=== PATIENT | female | born 1975 | race Caucasian/White ===

== ENCOUNTER 2018-01-14 13:28 | Emergency (ER) | payer MEDICAID ==
[~2018-01-14] VITALS: Ht 177.8 cm; Wt 104.0 kg
[2018-01-14 14:02] VITALS: BP 149/71; PULSE 105; RESP 19; TEMP 98.9
[2018-01-14] MEDS ORDERED: DOXE100C4 PO (15:39)
[2018-01-14] MEDS ORDERED: DIAZ10TA PO (15:39)
[2018-01-14] MEDS ORDERED: AMLO10TA2 PO (15:39)
[2018-01-14] MEDS ORDERED: VIST50CA PO (15:39)
[2018-01-14] MEDS ORDERED: METO25TA3 PO (15:39)
[2018-01-14] MEDS ORDERED: RISP1 PO (15:39)
[2018-01-14] MEDS ORDERED: SODIUM CHLOR 0.9% 1000 ML INJ 1,000 ML IV SCH (15:54)
[2018-01-14 15:59] LABS: BACTERIA, URINE OCC /hpf; BILIRUBIN, URINE NEG (NEG); BLOOD, URINE NEG (NEG); GLUCOSE,URINE NEG (NEG); KETONE, URINE NEG (NEG); MUCUS URINE FEW /lpf (OCC); NITRITE,URINE NEG (NEG); SQUAMOUS EPITHELIAL CELL URINE 9 /hpf (0-5); URINE COLOR YELLOW (YELLW/STRAW); URINE LEUKOCYTE ESTERASE NEG (NEG)
[2018-01-14] MEDS ORDERED: MORPHINE SULFATE 4 MG/ML INJ IV PUSH ONE (16:00)
[2018-01-14] MEDS ORDERED: MORPHINE SULFATE 8 MG/ML INJ IV PUSH ONE (16:00)
[2018-01-14] MEDS ORDERED: METOCLOPRAMIDE HCL 10 MG/2 ML VIAL IV PUSH ONE (16:00)
[2018-01-14 16:16] LABS: AUTOMATED NEUTROPHIL # 5.1 TH/MM3 (1.8-7.7); BASOPHIL # 0.1 TH/MM3 (0-0.2); EOSINOPHIL # 0.2 TH/MM3 (0-0.4); EOSINOPHIL % 2.8 % (0.0-4.0); HEMATOCRIT 36.9 % (35.0-46.0); HEMOGLOBIN 12.7 GM/DL (11.6-15.3); LYMPHOCYTE # 2.3 TH/MM3 (1.0-4.8); MEAN CELL VOLUME 85.5 FL (80.0-100.0); MEAN CORPUSCULAR HEMOGLOBIN 29.4 PG (27.0-34.0); MEAN CORPUSCULAR HGB CONC 34.4 % (32.0-36.0); MEAN PLATELET VOLUME 6.5 FL (7.0-11.0); MONO % 9.8 % (0.0-8.0); MONOCYTE # 0.8 TH/MM3 (0-0.9); NEUT % 59.4 % (16.0-70.0); PLATELET COUNT 309 TH/MM3 (150-450); RED BLOOD COUNT 4.32 MIL/MM3 (4.00-5.30); RED CELL DISTRIBUTION WIDTH 14.4 % (11.6-17.2); WHITE BLOOD COUNT 8.6 TH/MM3 (4.0-11.0)
--- NOTE | 2018-01-14 16:43 | RADRPT ---
EXAM DATE: 01/14/2018 4:14 PM EDT AGE/SEX: 43 years / Female INDICATIONS: Right sided flank pain, vomiting. CLINICAL DATA: This is the patient's initial encounter. Patient reports that signs and symptoms have been present for 1 day and indicates a pain score of 5/10. MEDICAL/SURGICAL HISTORY: Renal calculi. . Partial hysterectomy. RADIATION DOSE: 29.95 CTDI (mGy) COMPARISON: No prior exams available for comparison. TECHNIQUE: Multiple contiguous axial images were obtained through the abdomen. Images were obtained using multiple row detector helical technique. Using dose reduction techniques, radiation dose was ke pt as low as reasonably achievable to obtain optimal diagnostic quality images. FINDINGS: Right kidney/ureter: The right kidney is normal in size. There is a 2 mm nonobstructing stone seen in the collecting system. The ureter is followed throughout its course and is unremarkable in caliber n o stones are seen within the right ureter. Left kidney/ureter: The left kidney is normal in size. There is a 3 mm stone seen within the collecti ng system. There is no hydronephrosis. The left ureter is followed throughout its course and is unrem arkable in appearance. Bladder: No stones are identified within the bladder. CT source data: The limited portion of lung base visualized is clear. The visualized portions of live r and spleen are unremarkable. The pancreas and adrenal glands are intact. The abdominal aorta is nor mal in caliber. There is no retroperitoneal adenopathy. No free air free fluid is seen. The loops of small and large bowel are unremarkable. No iliac or inguinal adenopathy is present. No free fluid is seen within the pelvis. CONCLUSION: 1. No definite findings to indicate renal obstruction are identified. 2. No free air free fluid evident. No findings to indicate a bowel obstruction are seen. Electronically signed by: Armando Moreno MD 01/14/2018 4:41 PM EDT
[2018-01-14 16:53] LABS: ALKALINE PHOSPHATASE 112 U/L (45-117); ALT (GPT) 71 U/L (10-53); TOTAL BILIRUBIN ADULT 0.2 MG/DL (0.2-1.0); TOTAL PROTEIN 7.4 GM/DL (6.4-8.2)
--- NOTE | 2018-01-14 17:01 | PD ---
HPI Chief Complaint: Abdominal Pain Time Seen by Provider: 15:42 Travel History International Travel<30 days: No Contact w/Intl Traveler<30days: No Traveled to known affect area: No History of Present Illness HPI 43-year-old female that presents to the ED for evaluation of right flank pain that radiates to the abdomen. Per patient she has had this for the past couple of hours. Per patient is severe. She has a history of kidney stones and she tells me that she is had stones in that area in the past. She denies any urinary or bowel movement issues but states that it hurts to pee. She denies any chest pain or shortness of breath. She states that she is currently visiting from out of town. She denies any injury. No trauma. Pain per patient is severe 7 out of 10. States mainly on the right flank and goes to the abdomen. No other medical issues. She has had her gallbladder and hysterectomy done. She has an allergy to NSAIDs secondary to peptic ulcer disease. Nothing seems to make it better. PFSH Past Medical History Anxiety: Yes Depression: Yes Hypertension: Yes Kidney Stones: Yes Tetanus Vaccination: < 5 Years ?: Not Past Surgical History Cholecystectomy: Yes Hysterectomy: Yes (partial) Other Surgery: Yes (RIGHT EAR FOR VERTIGO) Social History Alcohol Use: No Tobacco Use: Yes (3 A DAY) Substance Use: No Allergies-Medications (Allergen,Severity, Reaction): Coded Allergies: calcium (Verified Allergy, Severe, Respiratory Failure, 01/14/18) calcium carbonate (Verified Allergy, Severe, Respiratory Failure, 01/14/18) chlorpromazine (Verified Allergy, Severe, Respiratory Failure, 01/14/18) droperidol (Verified Allergy, Severe, Respiratory Failure, 01/14/18) prasterone (DHEA) (Verified Allergy, Severe, Respiratory Failure, 01/14/18) NSAIDS (Non-Steroidal Anti-Inflamma (Verified Adverse Reaction, Mild, Dyspepsia, 01/14/18) Reported Meds & Prescriptions Reported Meds & Active Scripts Active Zofran Odt (Ondansetron Odt) 4 Mg Tab 4 Mg SL Q6HR PRN Flexeril (Cyclobenzaprine HCl) 10 Mg Tab 10 Mg PO TID Reported Metoprolol Tartrate 25 Mg Tab 25 Mg PO DAILY Amlodipine (Amlodipine Besylate) 10 Mg Tab 10 Mg PO DAILY Vistaril (Hydroxyzine Pamoate) 50 Mg Cap 100 Mg PO HS PRN Doxepin (Doxepin HCl) 100 Mg Cap 100 Mg PO HS Diazepam 10 Mg Tab 10 Mg PO TID PRN Risperdal (Risperidone) 1 Mg Tab 1 Mg PO HS Review of Systems Except as stated in HPI: all other systems reviewed are Neg Physical Exam Narrative GENERAL: SKIN: Warm and dry. HEAD: Atraumatic. Normocephalic. EYES: Pupils equal and round. No scleral icterus. No injection or drainage. ENT: No nasal bleeding or discharge. Mucous membranes pink and moist. Tongue is midline. No uvula deviation. NECK: Trachea midline. No JVD. CARDIOVASCULAR: Regular rate and rhythm. No murmurs, S3, S4. RESPIRATORY: No accessory muscle use. Clear to auscultation. Breath sounds equal bilaterally. GASTROINTESTINAL: Abdomen soft, some pain reproducible in the right abdomen as well, nondistended. Hepatic and splenic margins not palpable. Patient is a producible pain on the right flank. MUSCULOSKELETAL: Extremities without clubbing, cyanosis, or edema. No obvious deformities. Full range of motion of the upper and lower extremities bilaterally. 2+ pulses bilaterally. NEUROLOGICAL: Awake and alert. No obvious cranial nerve deficits. Motor grossly within normal limits. Five out of 5 muscle strength in the arms and legs. Normal speech. PSYCHIATRIC: Appropriate mood and affect; insight and judgment normal. Data Data Last Documented VS Vital Signs Date Time Temp Pulse Resp B/P (MAP) Pulse Ox O2 Delivery O2 Flow Rate FiO2 01/14/18 17:07 17 01/14/18 14:02 98.9 105 149/71 (97) Orders Orders Urinalysis - C+S If Indicated (01/14/18 14:07) Ct Abd/Pel W/O Iv Contrast (01/14/18 ) Complete Blood Count With Diff (01/14/18 15:54) Comprehensive Metabolic Panel (01/14/18 15:54) Lipase (01/14/18 15:54) Lactic Acid (01/14/18 15:54) Iv Access Insert/Monitor (01/14/18 15:54) Morphine Inj (Morphine Inj) (01/14/18 16:00) Sodium Chlor 0.9% 1000 Ml Inj (Ns 1000 M (01/14/18 15:54) Metoclopramide Inj (Reglan Inj) (01/14/18 16:00) Morphine Inj (Morphine Inj) (01/14/18 16:00) Pantoprazole Inj (Protonix Inj) (01/14/18 17:15) Morphine Inj (Morphine Inj) (01/14/18 17:15) Orphenadrine Inj (Norflex Inj) (01/14/18 17:30) Ed Discharge Order (01/14/18 17:34) Labs Laboratory Tests Test 01/14/18 14:29 01/14/18 16:05 Urine Color YELLOW Urine Turbidity HAZY Urine pH 6.0 Urine Specific [place] 1.021 Urine Protein NEG mg/dL Urine Glucose (UA) NEG mg/dL Urine Ketones NEG mg/dL Urine Occult Blood NEG Urine Nitrite NEG Urine Bilirubin NEG Urine Urobilinogen LESS THAN 2.0 MG/DL Urine Leukocyte Esterase NEG Urine RBC LESS THAN 1 /hpf Urine WBC 3 /hpf Urine Squamous Epithelial Cells 9 /hpf Urine Bacteria OCC /hpf Urine Mucus FEW /lpf Microscopic Urinalysis Comment CULT NOT INDICATED White Blood Count 8.6 TH/MM3 Red Blood Count 4.32 MIL/MM3 Hemoglobin 12.7 GM/DL Hematocrit 36.9 % Mean Corpuscular Volume 85.5 FL Mean Corpuscular Hemoglobin 29.4 PG Mean Corpuscular Hemoglobin Concent 34.4 % Red Cell Distribution Width 14.4 % Platelet Count 309 TH/MM3 Mean Platelet Volume 6.5 FL Neutrophils (%) (Auto) 59.4 % Lymphocytes (%) (Auto) 27.0 % Monocytes (%) (Auto) 9.8 % Eosinophils (%) (Auto) 2.8 % Basophils (%) (Auto) 1.0 % Neutrophils # (Auto) 5.1 TH/MM3 Lymphocytes # (Auto) 2.3 TH/MM3 Monocytes # (Auto) 0.8 TH/MM3 Eosinophils # (Auto) 0.2 TH/MM3 Basophils # (Auto) 0.1 TH/MM3 CBC Comment DIFF FINAL Differential Comment Blood Urea Nitrogen 12 MG/DL Creatinine 1.07 MG/DL Random Glucose 102 MG/DL Total Protein 7.4 GM/DL Albumin 3.7 GM/DL Calcium Level 8.9 MG/DL Alkaline Phosphatase 112 U/L Aspartate Amino Transf (AST/SGOT) 40 U/L Alanine Aminotransferase (ALT/SGPT) 71 U/L Total Bilirubin 0.2 MG/DL Sodium Level 138 MEQ/L Potassium Level 4.4 MEQ/L Chloride Level 104 MEQ/L Carbon Dioxide Level 25.0 MEQ/L Anion Gap 9 MEQ/L Estimat Glomerular Filtration Rate 56 ML/MIN Lactic Acid Level 1.6 mmol/L Lipase 86 U/L [facility] Medical Decision Making Medical Screen Exam Complete: Yes Emergency Medical Condition: Yes Medical Record Reviewed: Yes Interpretation(s) CBC & BMP Diagram 01/14/18 16:05 Total Protein 7.4, Albumin 3.7, Calcium Level 8.9, Alkaline Phosphatase 112, Aspartate Amino Transf (AST/SGOT) 40 H, Alanine Aminotransferase (ALT/SGPT) 71 H , Total Bilirubin 0.2 UA negative Last Impressions Abdomen/Pelvis CT 01/14/18 0000 Signed Impressions: CONCLUSION: 1. No definite findings to indicate renal obstruction are identified. 2. No free air free fluid evident. No findings to indicate a bowel obstruction are seen. Differential Diagnosis Kidney stone versus flank pain versus acute on chronic pain versus muscle strain versus acute abdomen Narrative Course 43-year-old female that presents to the ED for evaluation of right flank pain. Patient was properly examined and was found to have signs and symptoms of unclear etiology. Labs and imaging were ordered. Labs and imaging were essentially unremarkable. No sign of urine kidney stones. Patient was given IV pain medications and fluids. Patient still a little discomfort. I had my attending evaluated the patient as there is no findings on blood work and labs to tell is what the pain is coming from. My attending Dr. Al evaluated the patient himself and recommends trial of muscle relaxant and follow-up outpatient. I did evaluate patient in E [facility] and it looks like she has been given multiple prescriptions from different hospitals and providers last time being in December 21. There is strong suspicion that this may be an attempt for drug -seeking. At this time patient will be sent home with prescription for muscle relaxants. Tolerated of the pain. Could be just musculoskeletal. Could be drug-seeking behavior. At this time no significant medical distress. Patient will be discharged with prescription for muscle relaxant and Zofran by my attending Dr. Al. Please refer to his note. See ED if worsening symptoms. Follow-up with PCP. Diagnosis Primary Impression: Right flank pain Patient Instructions: General Instructions, Narcotic given in the ED Med/Other Pt SpecificInfo: Prescription(s) given Scripts Ondansetron Odt (Zofran Odt) 4 Mg Tab 4 MG SL Q6HR Y for Nausea/Vomiting, #10 TAB 0 Refills Prov: Zachariah Al MD 01/14/18 Cyclobenzaprine (Flexeril) 10 Mg Tab 10 MG PO TID for Muscle Spasm, #30 TAB 0 Refills Prov: Zachariah Al MD 01/14/18 Disposition: 01 DISCHARGE HOME Condition: Stable Jame Amezquita Jan 14, 2018 17:01
[2018-01-14 17:07] VITALS: RESP 17
[2018-01-14 17:07] LABS: ALBUMIN 3.7 GM/DL (3.4-5.0); AST (GOT) 40 U/L (15-37); BLOOD UREA NITROGEN 12 MG/DL (7-18); CALCIUM 8.9 MG/DL (8.5-10.1); CHLORIDE 104 MEQ/L (98-107); CREATININE 1.07 MG/DL (0.50-1.00); GLOMERULAR FILTRATION RATE 56 ML/MIN (>89); GLUCOSE,RANDOM 102 MG/DL (74-106); SODIUM (NA) 138 MEQ/L (136-145)
[2018-01-14] MEDS ORDERED: PANTOPRAZOLE SODIUM 40 MG VIAL IV PUSH ONE (17:15)
[2018-01-14] MEDS ORDERED: MORPHINE SULFATE 2 MG/ML SYRINGE IV PUSH ONE (17:15)
[2018-01-14] MEDS ORDERED: ORPHENADRINE INJ 60 MG/2 ML AMP IM ONE (17:30)
[2018-01-14] MEDS ORDERED: CYCL10TA PO (17:31)
[2018-01-14] MEDS ORDERED: ZOFR4TAB3 SL (17:31)
--- NOTE | 2018-01-14 17:31 | PD ---
Physical Exam Narrative Patient was seen by my social media assistant and me. Data Data Last Documented VS Vital Signs Date Time Temp Pulse Resp B/P (MAP) Pulse Ox O2 Delivery O2 Flow Rate FiO2 01/14/18 17:07 17 01/14/18 14:02 98.9 105 149/71 (97) Orders Orders Urinalysis - C+S If Indicated (01/14/18 14:07) Ct Abd/Pel W/O Iv Contrast (01/14/18 ) Complete Blood Count With Diff (01/14/18 15:54) Comprehensive Metabolic Panel (01/14/18 15:54) Lipase (01/14/18 15:54) Lactic Acid (01/14/18 15:54) Iv Access Insert/Monitor (01/14/18 15:54) Morphine Inj (Morphine Inj) (01/14/18 16:00) Sodium Chlor 0.9% 1000 Ml Inj (Ns 1000 M (01/14/18 15:54) Metoclopramide Inj (Reglan Inj) (01/14/18 16:00) Morphine Inj (Morphine Inj) (01/14/18 16:00) Pantoprazole Inj (Protonix Inj) (01/14/18 17:15) Morphine Inj (Morphine Inj) (01/14/18 17:15) Orphenadrine Inj (Norflex Inj) (01/14/18 17:30) Ed Discharge Order (01/14/18 17:34) Labs Laboratory Tests Test 01/14/18 14:29 01/14/18 16:05 Urine Color YELLOW Urine Turbidity HAZY Urine pH 6.0 Urine Specific [place] 1.021 Urine Protein NEG mg/dL Urine Glucose (UA) NEG mg/dL Urine Ketones NEG mg/dL Urine Occult Blood NEG Urine Nitrite NEG Urine Bilirubin NEG Urine Urobilinogen LESS THAN 2.0 MG/DL Urine Leukocyte Esterase NEG Urine RBC LESS THAN 1 /hpf Urine WBC 3 /hpf Urine Squamous Epithelial Cells 9 /hpf Urine Bacteria OCC /hpf Urine Mucus FEW /lpf Microscopic Urinalysis Comment CULT NOT INDICATED White Blood Count 8.6 TH/MM3 Red Blood Count 4.32 MIL/MM3 Hemoglobin 12.7 GM/DL Hematocrit 36.9 % Mean Corpuscular Volume 85.5 FL Mean Corpuscular Hemoglobin 29.4 PG Mean Corpuscular Hemoglobin Concent 34.4 % Red Cell Distribution Width 14.4 % Platelet Count 309 TH/MM3 Mean Platelet Volume 6.5 FL Neutrophils (%) (Auto) 59.4 % Lymphocytes (%) (Auto) 27.0 % Monocytes (%) (Auto) 9.8 % Eosinophils (%) (Auto) 2.8 % Basophils (%) (Auto) 1.0 % Neutrophils # (Auto) 5.1 TH/MM3 Lymphocytes # (Auto) 2.3 TH/MM3 Monocytes # (Auto) 0.8 TH/MM3 Eosinophils # (Auto) 0.2 TH/MM3 Basophils # (Auto) 0.1 TH/MM3 CBC Comment DIFF FINAL Differential Comment Blood Urea Nitrogen 12 MG/DL Creatinine 1.07 MG/DL Random Glucose 102 MG/DL Total Protein 7.4 GM/DL Albumin 3.7 GM/DL Calcium Level 8.9 MG/DL Alkaline Phosphatase 112 U/L Aspartate Amino Transf (AST/SGOT) 40 U/L Alanine Aminotransferase (ALT/SGPT) 71 U/L Total Bilirubin 0.2 MG/DL Sodium Level 138 MEQ/L Potassium Level 4.4 MEQ/L Chloride Level 104 MEQ/L Carbon Dioxide Level 25.0 MEQ/L Anion Gap 9 MEQ/L Estimat Glomerular Filtration Rate 56 ML/MIN Lactic Acid Level 1.6 mmol/L Lipase 86 U/L MDM Supervised Visit with [facility]: No Interpretation(s) Last Impressions Abdomen/Pelvis CT 01/14/18 0000 Signed Impressions: CONCLUSION: 1. No definite findings to indicate renal obstruction are identified. 2. No free air free fluid evident. No findings to indicate a bowel obstruction are seen. Diagnosis Primary Impression: Right flank pain Patient Instructions: General Instructions Additional Instruction: Flexeril as needed for pain. Zofran as needed for nausea vomiting. Moist heat. Follow-up with personal physician. Return if worse. Med/Other Pt SpecificInfo: Prescription(s) given Scripts Ondansetron Odt (Zofran Odt) 4 Mg Tab 4 MG SL Q6HR Y for Nausea/Vomiting, #10 TAB 0 Refills Prov: Zachariah Al MD 01/14/18 Cyclobenzaprine (Flexeril) 10 Mg Tab 10 MG PO TID for Muscle Spasm, #30 TAB 0 Refills Prov: Zachariah Al MD 01/14/18 Disposition: 01 DISCHARGE HOME Condition: Stable Zachariah Al MD Jan 14, 2018 17:31
== END 2018-01-14 21:14 | disposition home or self-care (01) ==
LOC: NEPE 13:28
DX: R10.9 Unspecified abdominal pain (principal); I10 Essential (primary) hypertension; F17.200 Nicotine dependence, unspecified, uncomplicated
CPT/HCPCS: 74176; 80053; 81001; 83605; 83690; 85025; 96361; 96372; 96374; 96375; 99284; C9113; J2270; J2360; J2765; J7030

== ENCOUNTER 2018-01-20 09:39 | Emergency (ER) | payer MEDICAID ==
[~2018-01-20] VITALS: Ht 177.8 cm; Wt 120.5 kg
[~2018-01-20 09:39] MED LIST: AMLO10TA2 PO; CYCL10TA PO; DIAZ10TA PO; DOXE100C4 PO; METO25TA3 PO; RISP1 PO; VIST50CA PO; ZOFR4TAB3 SL
[2018-01-20 09:45] VITALS: BP 185/93; PULSE 109; RESP 16; TEMP 98.2; O2SAT 98
[2018-01-20 10:32] LABS: AUTOMATED NEUTROPHIL # 5.2 TH/MM3 (1.8-7.7); BASOPHIL % 0.3 % (0.0-2.0); EOSINOPHIL # 0.2 TH/MM3 (0-0.4); EOSINOPHIL % 2.7 % (0.0-4.0); HEMATOCRIT 37.8 % (35.0-46.0); HEMOGLOBIN 12.7 GM/DL (11.6-15.3); LYMPH % 23.6 % (9.0-44.0); LYMPHOCYTE # 1.9 TH/MM3 (1.0-4.8); MEAN CELL VOLUME 88.3 FL (80.0-100.0); MEAN CORPUSCULAR HEMOGLOBIN 29.6 PG (27.0-34.0); MEAN CORPUSCULAR HGB CONC 33.6 % (32.0-36.0); MEAN PLATELET VOLUME 6.4 FL (7.0-11.0); MONO % 7.6 % (0.0-8.0); MONOCYTE # 0.6 TH/MM3 (0-0.9); NEUT % 65.8 % (16.0-70.0); PLATELET COUNT 333 TH/MM3 (150-450); RED BLOOD COUNT 4.28 MIL/MM3 (4.00-5.30); RED CELL DISTRIBUTION WIDTH 13.4 % (11.6-17.2); WHITE BLOOD COUNT 7.9 TH/MM3 (4.0-11.0)
[2018-01-20 10:42] LABS: BICARBONATE 22.4 MEQ/L (21.0-32.0); CALCIUM 8.9 MG/DL (8.5-10.1)
[2018-01-20] MEDS ORDERED: ACETAMINOPHEN 325 MG TAB PO ONE (10:45)
[2018-01-20] MEDS ORDERED: METOCLOPRAMIDE INJ 10 MG in SODIUM CHLORIDE 0.9% INJ 50 ML IV ONE (10:45)
[2018-01-20 10:46] LABS: CREATININE 0.96 MG/DL (0.50-1.00)
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
[2018-01-20 11:44] VITALS: BP 136/63; PULSE 95; RESP 16; O2SAT 97
[2018-01-20] MEDS ORDERED: TYLE325T PO (12:39)
[2018-01-20] MEDS ORDERED: ONDANSETRON ODT 4 MG TAB PO ONE (12:45)
--- NOTE | 2018-01-20 13:01 | RADRPT ---
EXAM DATE: 01/20/2018 12:13 PM EDT AGE/SEX: 43 years / Female INDICATIONS: Left ear pain and bloody drainage since yesterday. History of mastoiditis. CLINICAL DATA: This is the patient's initial encounter. Patient reports that signs and symptoms have been present for 2 days and indicates a pain score of 10/10. MEDICAL/SURGICAL HISTORY: Hypertension. Renal calculi. Mastoiditis. Hysterectomy. Cholecystectom y. RADIATION DOSE: 75.04 CTDI (mGy) COMPARISON: No prior exams available for comparison. TECHNIQUE: Thin section acquisition was performed without contrast in the coronal and axial planes u sing a multirow detector CT scanner. Using automated exposure control and adjustment of the mA and/o r kV according to patient size, radiation dose was kept as low as reasonably achievable to obtain opt imal diagnostic quality images. FINDINGS: TEMPORAL BONE Ossicles: The ossicles are intact. The oval window niche is intact. Mastoid Air Cells: Well aerated. No sclerotic or opacified air cells are seen. The aditus is intac t. Middle Ear: The epitympanum and hypotympanum are intact. Prussak's space and scutum are intact. The oval and round window are intact. Labyrinth: The cochlea and semicircular canals are normal in configuration without sclerosis. Internal Acoustic Canal: Normal in size without erosion. The cerebellar-pontine angle is intact. Jugular Fossa: Normal in size and position. Facial Canal: The tympanic, genu and descending portions are intact. External Acoustic Canal: The bony and cartilaginous portions are intact. Mild nonspecific soft tissu e changes external to the left external ear canal. No loculated fluid collections are demonstrated. CONCLUSION: 1. No evidence of mastoiditis. 2. The temporal bones and structures are intact bilaterally. 3. Mild nonspecific soft tissue changes external to the left external ear canal. Electronically signed by: Dionisio Souza MD 01/20/2018 12:59 PM EDT
== END 2018-01-20 12:42 | disposition left against medical advice (07) ==
LOC: PHED 09:39
DX: H92.02 Otalgia, left ear (principal); Z53.21 Procedure and treatment not carried out due to patient leaving prior to being seen by health care provider; R51 Headache; R11.0 Nausea; R50.9 Fever, unspecified; I10 Essential (primary) hypertension; Z72.0 Tobacco use
CPT/HCPCS: 70480; 80048; 85025; 96365; 99284; J2765

== ENCOUNTER 2018-03-01 18:39 | Observation (INO) ==
[2018-03-01] MEDS ORDERED: Morphine Inj 4 MG/ML Vial IV.PUSH ONE (19:24)
--- NOTE | 2018-03-01 20:41 | ED ---
HPI General Chief Complaint: Chest Pain Stated Complaint: chest pain/sob Time Seen by Provider: 03/01/18 19:09 Source: patient Mode of arrival: ambulatory Limitations: no limitations History of Present Illness HPI narrative: 43-year-old female that presents to the ED for evaluation of chest pain that goes to the back. Per patient she has had this for 2 days. Per patient started last night. Patient is progressively getting worse. Per patient the pain is 10 out of 10. Gets worse when she stands up. Per patient when she lays he seems to make it better. Per patient and goes from the front on the chest to the back around the same area. No history of this before. No history of heart disease. History of anxiety. History of high blood pressure as well. Takes medications for this. Per patient she is allergic to NSAIDs. Denies any urinary or bowel movement issues. No fevers chills or sweats. No cough or runny nose. No recent travel. No blood thinner use. Has not seen anybody for this. Only movement seems to make it a little bit better. Per patient she does get short of breath especially when she ambulates. Complete Quality Measures for STEMI Alert Patients Related Data Home Medications Medication Instructions Recorded Confirmed amlodipine 10 mg PO DAILY 02/03/18 03/01/18 diazepam 10 mg PO BID 02/03/18 03/01/18 doxepin 100 mg PO DAILY 02/03/18 03/01/18 metoprolol tartrate 25 mg PO BID 02/03/18 03/01/18 risperidone [Risperdal] 1 mg PO DAILY 02/03/18 03/01/18 hydroxyzine pamoate [Vistaril] 100 mg PO DAILY PRN 03/01/18 03/01/18 Allergies Allergy/AdvReac Type Severity Reaction Status Date / Time calcium Allergy Severe Respiratory Verified 01/20/18 09:52 Failure calcium carbonate Allergy Severe Respiratory Verified 01/20/18 09:52 Failure chlorpromazine Allergy Severe Respiratory Verified 01/20/18 09:52 Failure droperidol Allergy Severe Respiratory Verified 01/20/18 09:52 Failure prasterone (DHEA) Allergy Severe Respiratory Verified 01/20/18 09:52 Failure NSAIDS (Non-Steroidal AdvReac Mild Dyspepsia Verified 01/20/18 09:52 Anti-Inflamma Review of Systems ROS Unobtainable All other systems reviewed negative except as stated in HPI [facility] Medical History Medical History Anxiety (Acute) Depression (Acute) TIA (transient ischemic attack) (Acute) Tachycardia (Acute) Surgical History Surgical History History of cholecystectomy (Acute) History of partial hysterectomy (Acute) History of tubal ligation (Acute) Social History Social History Substance History: No History of Abuse Second Hand Smoke Exposure: Yes Smoking Status: Former smoker Tobacco Type: Cigarettes How Often Do You Have a Drink Containing Alcohol: Never Recent Travel in [facility] within the Last 8 Weeks: No Recent Out of Country Travel within the Last 8 Weeks: No Immunization History Tetanus Immunization: Unsure Hx Influenza Vaccine This Season: Yes Exam Narrative Exam Narrative: GENERAL: Well-appearing SKIN: Focused skin assessment warm/dry. HEAD: Atraumatic. Normocephalic. EYES: Pupils equal and round. No scleral icterus. No injection or drainage. ENT: No nasal bleeding or discharge. Mucous membranes pink and moist. Tongue is midline. No uvula deviation. NECK: Trachea midline. No JVD. CARDIOVASCULAR: Regular rate and rhythm. No murmur appreciated. RESPIRATORY: No accessory muscle use. Clear to auscultation. Breath sounds equal bilaterally. GASTROINTESTINAL: Abdomen soft, non-tender, nondistended. Hepatic and splenic margins not palpable. MUSCULOSKELETAL: No obvious deformities. No clubbing. No cyanosis. No edema. Full range of motion of the upper and lower extremities bilaterally. 2+ pulses bilaterally. NEUROLOGICAL: Awake and alert. No obvious cranial nerve deficits. Motor grossly within normal limits. Normal speech. PSYCHIATRIC: Appropriate mood and affect; insight and judgment normal. Course Initial Documented Vital Signs Temperature 98.9 F 03/01/18 18:48 Pulse Rate 87 03/01/18 18:48 Respiratory Rate 22 03/01/18 18:48 Blood Pressure 163/97 H 03/01/18 18:48 Pulse Oximetry 98 03/01/18 18:48 Last Documented Vital Signs Temperature 98.9 F 03/01/18 18:48 Pulse Rate 84 03/01/18 21:47 Respiratory Rate 20 03/01/18 21:47 Blood Pressure 156/78 H 03/01/18 21:47 Pulse Oximetry 98 03/01/18 21:47 Medical Decision Making MDM Narrative Medical decision making narrative: 43-year-old female that presents to the ED for evaluation of chest pain. Patient was properly examined and was found to have signs and symptoms concerning for ACS versus PE versus costochondritis. Labs and imaging were ordered. Patient was given IV pain medications. Nitroglycerin. Labs and imaging showed no sign of acute disease. No sign of PE. Labs and imaging were ordered. Patient still a lot of pain. My attending agrees to Dilaudid. Patient was given small dose of Dilaudid here with some improvement of her pain. Unclear etiology at this time. Patient does have risk factors for heart disease. I do recommend admission to the chest pain center for further evaluation as her chest pain is not still under control. Case was discussed with the patient herself who agrees with admission for chest pain center rule out. Patient was admitted to chest pain center by me. Differential Diagnosis Differential Diagnosis: PE versus a typical chest pain versus chest pain versus ACS Medical Records Medical records reviewed: Yes I reviewed the patient's medical records. POC Test Results POC Urine Results: Negative Lab Data Lab results reviewed: Yes I reviewed the patient's lab results. Lab results narrative: Troponin and CK-MB negative. Result diagrams: 03/01/18 20:05 03/01/18 20:05 Lab Results 03/01/18 03/01/18 03/01/18 Range/Units 20:05 20:05 20:05 WBC 8.8 (4.0-11.0) th/mm3 RBC 4.16 (4.00-5.30) mil/mm3 Hgb 12.3 (11.6-15.3) gm/dL Hct 36.2 (35.0-46.0) % MCV 87.0 (80.0-100.0) fL MCH 29.6 (27.0-34.0) pg MCHC 34.0 (32.0-36.0) % RDW 14.3 (11.6-17.2) % Plt Count 313 (150-450) th/mm3 MPV 6.5 L (7.0-11.0) fL Neut % (Auto) 59.2 (16.0-70.0) % Lymph % (Auto) 24.3 (9.0-44.0) % [place] % (Auto) 12.0 H (0.0-8.0) % Eos % (Auto) 3.7 (0.0-4.0) % Baso % (Auto) 0.8 (0.0-2.0) % Neut # (Auto) 5.2 (1.8-7.7) th/mm3 Lymph # (Auto) 2.1 (1.0-4.8) th/mm3 [place] # (Auto) 1.1 H (0.0-0.9) th/mm3 Eos # (Auto) 0.3 (0.0-0.4) th/mm3 Baso # (Auto) 0.1 (0.0-0.2) th/mm3 WBC Differential . Differential Comment Auto diff final PT 10.0 (9.8-11.6) sec INR 1.0 Ratio APTT 24.4 (24.3-30.1) sec Sodium 138 (136-145) meq/L Potassium 4.0 (3.5-5.1) meq/L Chloride 105 (98-107) meq/L Carbon Dioxide 24.9 (21.0-32.0) meq/L Anion Gap 8 (5-15) meq/L BUN 8 (7-18) mg/dL Creatinine 0.93 (0.50-1.00) mg/dL Estimated GFR 65 L (>89) mL/min Random Glucose 104 (74-106) mg/dL Calcium 8.4 L (8.5-10.1) mg/dL Total Bilirubin 0.1 L (0.2-1.0) mg/dL AST 18 (15-37) U/L ALT 36 (10-53) U/L Alkaline Phosphatase 121 H (45-117) U/L Total Creatine Kinase 81 (26-192) U/L Troponin I Less than 0.02 L (0.02-0.05) ng/mL Total Protein 7.0 (6.4-8.2) g/dL Albumin 3.3 L (3.4-5.0) g/dL Lipase 120 (73-393) U/L Imaging Data Attestation: I personally reviewed and interpreted this imaging study as follows : Radiologist's impression: Chest CTA 03/01/18 19:24 CONCLUSION: 1. Negative for central pulmonary emboli. Chest X-Ray 03/01/18 19:24 CONCLUSION: Negative for acute process ECG Data Attestation: I personally reviewed and interpreted this ECG as follows: Interpretation: EKG shows sinus rhythm with no sign of acute ischemia or arrhythmia read by me and attending. No sign of ST elevation. Normal NV intervals. Discharge Plan Discharge Disposition Patient Disposition: 30 Still Patient Discharge Details Diagnosis: Chest pain Physicians Team ED Provider: Katina Dunne ED Midlevel Provider: Jame Amezquita Primary Care Provider: Red Watts Rxs /Orders / Referrals /Forms Prescriptions: No Action hydroxyzine pamoate [Vistaril] 50 mg Capsule 100 mg PO DAILY PRN (Reason: Anxiety) RF: 0 amlodipine 10 mg Tablet 10 mg PO DAILY RF: 0 doxepin 100 mg Capsule 100 mg PO DAILY RF: 0 diazepam 10 mg Tablet 10 mg PO BID RF: 0 risperidone [Risperdal] 1 mg Tablet 1 mg PO DAILY RF: 0 metoprolol tartrate 25 mg Tablet 25 mg PO BID RF: 0 Discharge Instructions Patient Printed Instructions: Chest Pain (ED) Status ED Status: Admitted Observation Patient
[2018-03-01 20:45] LABS: Baso # (Auto) 0.1 th/mm3 (0.0-0.2); Baso % (Auto) 0.8 % (0.0-2.0); Eos # (Auto) 0.3 th/mm3 (0.0-0.4); Eos % (Auto) 3.7 % (0.0-4.0); Hematocrit 36.2 % (35.0-46.0); Hemoglobin 12.3 gm/dL (11.6-15.3); Lymph # (Auto) 2.1 th/mm3 (1.0-4.8); Lymph % (Auto) 24.3 % (9.0-44.0); Mean Corpuscular Hemoglobin 29.6 pg (27.0-34.0); Mean Platelet Volume 6.5 fL (7.0-11.0); Mono # (Auto) 1.1 th/mm3 (0.0-0.9); Neut # (Auto) 5.2 th/mm3 (1.8-7.7); Neut % (Auto) 59.2 % (16.0-70.0); Platelet Count 313 th/mm3 (150-450); Red Blood Count 4.16 mil/mm3 (4.00-5.30); Red Cell Distribution Width 14.3 % (11.6-17.2); White Blood Count 8.8 th/mm3 (4.0-11.0)
[2018-03-01 20:54] LABS: Activated Partial Thrombo Time 24.4 sec (24.3-30.1)
--- NOTE | 2018-03-01 20:56 | CT ---
EXAM DATE: 03/01/2018 8:45 PM EDT AGE/SEX: 43 years / Female INDICATIONS: Chest pain with shortness of breath. CLINICAL DATA: This is the patient's initial encounter. Patient reports that signs and symptoms have been present for 1 day and indicates a pain score of 6/10. MEDICAL/SURGICAL HISTORY: Cardiovascular disease. Cholecystectomy. Hysterectomy. RADIATION DOSE: 10.55 CTDI (mGy) COMPARISON: No prior exams available for comparison. TECHNIQUE: Volumetric scanning was performed using a multi-row detector CT scanner during bolus infu ilya of 73 ml Omnipaque 350 (iohexol) nonionic water-soluble contrast as a cumulative dose for multi ple exams. The data was post processed with a variety of visualization algorithms including full volu me maximum intensity projection and sliding thin slab reformation. Using automated exposure control a nd adjustment of the mA and/or kV according to patient size, radiation dose was kept as low as reason ably achievable to obtain optimal diagnostic quality images. DICOM format image data is available el ectronically for review and comparison. FINDINGS: Pulmonary Arteries: Bolus is suboptimal no central pulmonary emboli . The left and right pulmonary a rteries are normal in diameter. Lung: No infiltrates seen. Effusion: None. Mediastinum: No evidence of mediastinal or hilar adenopathy. No coronary calcifications. No pericard ial effusion. Other: The axilla is unremarkable. CONCLUSION: 1. Negative for central pulmonary emboli. Electronically signed by: Koffi Moreno MD 03/01/2018 8:54 PM EDT
[2018-03-01 21:10] LABS: Albumin 3.3 g/dL (3.4-5.0); Anion Gap 8 meq/L (5-15); Aspartate Aminotransferase 18 U/L (15-37); Blood Urea Nitrogen 8 mg/dL (7-18); Calcium 8.4 mg/dL (8.5-10.1); Carbon Dioxide 24.9 meq/L (21.0-32.0); Chloride 105 meq/L (98-107); Glomerular Filtration Rate 65 mL/min (>89); Glucose,Random 104 mg/dL (74-106); Lipase 120 U/L (73-393); Sodium 138 meq/L (136-145)
[2018-03-01 21:12] LABS: Alanine Aminotransferase 36 U/L (10-53); Alkaline Phosphatase 121 U/L (45-117)
[2018-03-01 21:13] LABS: Creatine Kinase 81 U/L (26-192)
--- NOTE | 2018-03-01 21:36 | XR ---
EXAM DATE: 03/01/2018 9:27 PM EDT AGE/SEX: 43 years / Female INDICATIONS: Chest pain and shortness of breath. CLINICAL DATA: This is the patient's initial encounter. Patient reports that signs and symptoms have been present for 1 day and indicates a pain score of 9/10. MEDICAL/SURGICAL HISTORY: . Cardiovascular disease. . Cholecystectomy. Hysterectomy. COMPARISON: No prior exams available for comparison. FINDINGS: A single AP view of the chest demonstrates the lungs to be symmetrically aerated without evidence of mass, infiltrate or effusion. The cardiomediastinal contours are unremarkable. Osseous structures a re intact. CONCLUSION: Negative for acute process Electronically signed by: Koffi Moreno MD 03/01/2018 9:35 PM EDT
[2018-03-01] MEDS ORDERED: HYDROmorphone PF Inj 2 MG/ML Vial IV.PUSH ONE (21:41)
[2018-03-01] MEDS ORDERED: Acetaminophen 500 MG Tablet PO PRN (21:57)
[2018-03-02 00:39] LABS: Creatine Kinase 73 U/L (26-192)
[2018-03-02] MEDS: Morphine Inj 4 MG/ML Vial IV.PUSH PRN ×2 (01:54→06:04)
[2018-03-02 02:40] LABS: Creatine Kinase 78 U/L (26-192)
--- NOTE | 2018-03-02 11:33 | ECG ---
Date Performed: 03/02/2018 Time Performed: 06:00:46 PTAGE: 43 years EKG: Sinus rhythm POSSIBLE LEFT ATRIAL ENLARGEMENT BORDERLINE ECG PREVIOUS TRACING : 03/02/2018 01.58 Since previous tracing, no significant change noted DOCTOR: James Ramos Interpretating Date/Time 03/02/2018 11:32:27
--- NOTE | 2018-03-02 11:33 | ECG ---
Date Performed: 03/02/2018 Time Performed: 01:58:45 PTAGE: 43 years EKG: Sinus rhythm POSSIBLE LEFT ATRIAL ENLARGEMENT BORDERLINE ECG PREVIOUS TRACING : 03/01/2018 23.06 Since previous tracing, no significant change noted DOCTOR: James Ramos Interpretating Date/Time 03/03/2018 14:10:45
--- NOTE | 2018-03-02 11:39 | ECG ---
Date Performed: 03/01/2018 Time Performed: 23:06:59 PTAGE: 43 years EKG: Sinus rhythm POSSIBLE LEFT ATRIAL ENLARGEMENT BORDERLINE ECG PREVIOUS TRACING : 03/01/2018 18.58 Since previous tracing, no significant change noted DOCTOR: James Ramos Interpretating Date/Time 03/02/2018 11:37:34
--- NOTE | 2018-03-02 11:42 | ECG ---
Date Performed: 03/01/2018 Time Performed: 18:58:00 PTAGE: 43 years EKG: Sinus rhythm POSSIBLE LEFT ATRIAL ENLARGEMENT BORDERLINE ECG WARNING: DATA QUALITY MAY AFFECT INTERPRETATION NO PREVIOUS TRACING DOCTOR: James Ramos Interpretating Date/Time 03/02/2018 11:41:34
== END 2018-03-02 10:24 | disposition left against medical advice (07) ==
LOC: NEDA 18:39 → NEPGCP 18:39 → NEPC 18:39 → NEPGCP 22:40

== ENCOUNTER 2018-04-16 18:55 | Observation (INO) ==
[2018-04-16 20:43] LABS: Baso # (Auto) 0.1 th/mm3 (0.0-0.2); Baso % (Auto) 0.7 % (0.0-2.0); Eos # (Auto) 0.2 th/mm3 (0.0-0.4); Eos % (Auto) 2.2 % (0.0-4.0); Hematocrit 37.8 % (35.0-46.0); Hemoglobin 12.5 gm/dL (11.6-15.3); Lymph # (Auto) 2.5 th/mm3 (1.0-4.8); Lymph % (Auto) 26.3 % (9.0-44.0); Mean Corpuscular HGB Conc 33.1 % (32.0-36.0); Mean Corpuscular Hemoglobin 29.5 pg (27.0-34.0); Mean Platelet Volume 6.6 fL (7.0-11.0); Mono # (Auto) 1.1 th/mm3 (0.0-0.9); Mono % (Auto) 11.3 % (0.0-8.0); Neut # (Auto) 5.6 th/mm3 (1.8-7.7); Neut % (Auto) 59.5 % (16.0-70.0); Platelet Count 299 th/mm3 (150-450); Red Blood Count 4.24 mil/mm3 (4.00-5.30); Red Cell Distribution Width 14.4 % (11.6-17.2); White Blood Count 9.4 th/mm3 (4.0-11.0)
--- NOTE | 2018-04-16 20:45 | XR ---
EXAM DATE: 04/16/2018 8:35 PM EDT AGE/SEX: 43 years / Female INDICATIONS: . Chest pain. CLINICAL DATA: This is the patient's initial encounter. Patient reports that signs and symptoms have been present for 3 days and indicates a pain score of 10/10. MEDICAL/SURGICAL HISTORY: Hypertension. Tachycardia. None. COMPARISON: [facility] [place], CHEST 1V SINGLE AP, 03/01/2018. . FINDINGS: PA and lateral views of the chest demonstrate the lungs to be symmetrically aerated without evidence of mass, infiltrate or effusion. The cardiomediastinal contours are unremarkable. Osseous structures are intact. CONCLUSION: No acute cardiopulmonary disease. Electronically signed by: Markus Gray MD 04/16/2018 8:43 PM EDT
[2018-04-16] MEDS ORDERED: Morphine Inj 4 MG, Morphine Inj 2 MG IV.PUSH ONE ×2 (20:52)
--- NOTE | 2018-04-16 20:59 | ED ---
HPI General Chief Complaint: Chest Pain Stated Complaint: Patient states chest pain/abd pain/vomiting Time Seen by Provider: 04/16/18 19:35 Source: patient Mode of arrival: ambulatory Limitations: no limitations History of Present Illness HPI narrative: 43-year-old woman who presents with 1 day history of intermittent chest pains along with constant right lower quadrant abdominal pain. Both pain started today and have been present throughout the day. The chest pain itself is intermittent and it comes and goes in minutes long episodes. The chest pain is present in the center of her chest and radiates to the left shoulder. She had a similar pain in the recent past and was seen at this emergency department but she left AMA prior to admission for chest pain observation. That pain feels like the pain today in her chest. She also reports a mild exertional dyspnea that is also present for today. The pain in her right lower abdomen is constant and sharp. It radiates somewhat to the flank and it feels similar to 1 of her prior kidney stones. She has a history of multiple episodes of renal colic. Nothing and she is done helps. It hurts worse to lie flat. Is associated with nausea and vomiting, and she has vomited multiple times a daymore times and she can count. Last bowel movement was today and she denies diarrhea or bloody stools. She has episodes of feeling hot and chilled but when she checked her temperature she did not have a fever. Complete Quality Measures for STEMI Alert Patients Related Data Home Medications Medication Instructions Recorded Confirmed amlodipine 10 mg PO DAILY 02/03/18 04/16/18 diazepam 10 mg PO BID 02/03/18 04/16/18 doxepin 100 mg PO DAILY 02/03/18 04/16/18 metoprolol tartrate 25 mg PO BID 02/03/18 04/16/18 risperidone [Risperdal] 1 mg PO HS 02/03/18 04/16/18 hydroxyzine pamoate [Vistaril] 100 mg PO DAILY PRN 03/01/18 04/16/18 Allergies Allergy/AdvReac Type Severity Reaction Status Date / Time calcium Allergy Severe Respiratory Verified 04/16/18 19:12 Failure calcium carbonate Allergy Severe Respiratory Verified 04/16/18 19:12 Failure chlorpromazine Allergy Severe Respiratory Verified 04/16/18 19:12 Failure droperidol Allergy Severe Respiratory Verified 04/16/18 19:12 Failure prasterone (DHEA) Allergy Severe Respiratory Verified 04/16/18 19:12 Failure tramadol Allergy Hives Verified 04/16/18 19:12 NSAIDS (Non-Steroidal AdvReac Mild Dyspepsia Verified 04/16/18 19:12 Anti-Inflamma Review of Systems ROS: all other systems reviewed are negative [facility] Medical History Medical History Depression (Acute) Anxiety (Acute) Tachycardia (Acute) TIA (transient ischemic attack) (Acute) Surgical History Surgical History History of tubal ligation (Acute) History of cholecystectomy (Acute) History of partial hysterectomy (Acute) Social History Social History Substance History: No History of Abuse Second Hand Smoke Exposure: Yes Smoking Status: Heavy tobacco smoker Tobacco Type: Cigarettes How Often Do You Have a Drink Containing Alcohol: Never Recent Travel in [facility] within the Last 8 Weeks: No Recent Out of Country Travel within the Last 8 Weeks: No Immunization History Tetanus Immunization: >5 Years Hx Influenza Vaccine This Season: Yes Exam Narrative Exam Narrative: GENERAL: Nontoxic 43-year-old woman seated on exam stretcher who has a pains look on her face. Her is seated in a chair next to the stretcher. SKIN: Focused skin assessment warm/dry. HEAD: Atraumatic. Normocephalic. EYES: Pupils equal and round. No scleral icterus. No injection or drainage. ENT: No nasal bleeding or discharge. Mucous membranes pink and moist. NECK: Trachea midline. No JVD. CARDIOVASCULAR: Regular rate and rhythm. No murmur appreciated. RESPIRATORY: No accessory muscle use. Clear to auscultation. Breath sounds equal bilaterally. GASTROINTESTINAL: Abdomen soft, mild tenderness to palpation right lower quadrant and right upper quadrant, nondistended. Obese abdomen. MUSCULOSKELETAL: No obvious deformities. No clubbing. No cyanosis. No edema. NEUROLOGICAL: Awake and alert. No obvious cranial nerve deficits. Motor grossly within normal limits. Normal speech. PSYCHIATRIC: Appropriate mood and affect; insight and judgment normal. Course Initial Documented Vital Signs Temperature 98.7 F 04/16/18 19:08 Pulse Rate 98 H 04/16/18 19:08 Respiratory Rate 16 04/16/18 19:08 Blood Pressure 182/105 H 04/16/18 19:08 Pulse Oximetry 98 04/16/18 19:08 Last Documented Vital Signs Temperature 98.6 F 04/17/18 03:32 Pulse Rate 82 04/17/18 03:32 Respiratory Rate 17 04/17/18 03:32 Blood Pressure 145/85 H 04/17/18 03:32 Pulse Oximetry 93 L 04/17/18 03:32 Medical Decision Making MDM Narrative Medical decision making narrative: 43-year-old woman who complains of chest pain and right-sided abdominal. Although rare aortic dissection could the cause of simultaneous chest and abdomen. My suspicion is that the 2 are unrelated however. Also consider ACS or VA. No evidence for pericarditis on ECG. Chest x-ray is negative for pneumonia or pneumothorax. Will order CTA to rule out aortic dissection or AAA as cause. CTA will also allow to evaluate for intra-abdominal causes of pain. Will provide with IV morphine for pain control and IV Zofran for nausea. Medical Screen Exam Complete: Yes Emergency Medical Condition: Yes Medical Records Medical records reviewed: Yes I reviewed the patient's medical records. Lab Data Lab results reviewed: Yes I reviewed the patient's lab results. Lab results narrative: Mild elevation in liver enzymes and which is consistent with fatty liver seen on CT scan. Result diagrams: 04/16/18 20:30 04/16/18 20:30 POC Results POC Urine Results Negative Lab Results 04/16/18 04/16/18 04/16/18 Range/Units 20:30 20:30 20:30 WBC 9.4 (4.0-11.0) th/mm3 RBC 4.24 (4.00-5.30) mil/mm3 Hgb 12.5 (11.6-15.3) gm/dL Hct 37.8 (35.0-46.0) % MCV 89.0 (80.0-100.0) fL MCH 29.5 (27.0-34.0) pg MCHC 33.1 (32.0-36.0) % RDW 14.4 (11.6-17.2) % Plt Count 299 (150-450) th/mm3 MPV 6.6 L (7.0-11.0) fL Neut % (Auto) 59.5 (16.0-70.0) % Lymph % (Auto) 26.3 (9.0-44.0) % [place] % (Auto) 11.3 H (0.0-8.0) % Eos % (Auto) 2.2 (0.0-4.0) % Baso % (Auto) 0.7 (0.0-2.0) % Neut # (Auto) 5.6 (1.8-7.7) th/mm3 Lymph # (Auto) 2.5 (1.0-4.8) th/mm3 [place] # (Auto) 1.1 H (0.0-0.9) th/mm3 Eos # (Auto) 0.2 (0.0-0.4) th/mm3 Baso # (Auto) 0.1 (0.0-0.2) th/mm3 WBC Differential . Differential Comment Auto diff final Sodium 136 (136-145) meq/L Potassium 4.0 (3.5-5.1) meq/L Chloride 102 (98-107) meq/L Carbon Dioxide 23.9 (21.0-32.0) meq/L Anion Gap 10 (5-15) meq/L BUN 9 (7-18) mg/dL Creatinine 0.94 (0.50-1.00) mg/dL Estimated GFR 65 L (>89) mL/min Random Glucose 110 H (74-106) mg/dL Calcium 9.1 (8.5-10.1) mg/dL Total Bilirubin 0.1 L (0.2-1.0) mg/dL AST 28 (15-37) U/L ALT 48 (10-53) U/L Alkaline Phosphatase 123 H (45-117) U/L Total Creatine Kinase (26-192) U/L Troponin I Less than 0.02 L (0.02-0.05) ng/mL B-Natriuretic Peptide 8 (0-100) pg/mL Total Protein 7.3 (6.4-8.2) g/dL Albumin 3.5 (3.4-5.0) g/dL Lipase 104 (73-393) U/L 04/16/18 Range/Units 23:30 WBC (4.0-11.0) th/mm3 RBC (4.00-5.30) mil/mm3 Hgb (11.6-15.3) gm/dL Hct (35.0-46.0) % MCV (80.0-100.0) fL MCH (27.0-34.0) pg MCHC (32.0-36.0) % RDW (11.6-17.2) % Plt Count (150-450) th/mm3 MPV (7.0-11.0) fL Neut % (Auto) (16.0-70.0) % Lymph % (Auto) (9.0-44.0) % [place] % (Auto) (0.0-8.0) % Eos % (Auto) (0.0-4.0) % Baso % (Auto) (0.0-2.0) % Neut # (Auto) (1.8-7.7) th/mm3 Lymph # (Auto) (1.0-4.8) th/mm3 [place] # (Auto) (0.0-0.9) th/mm3 Eos # (Auto) (0.0-0.4) th/mm3 Baso # (Auto) (0.0-0.2) th/mm3 WBC Differential Differential Comment Sodium (136-145) meq/L Potassium (3.5-5.1) meq/L Chloride (98-107) meq/L Carbon Dioxide (21.0-32.0) meq/L Anion Gap (5-15) meq/L BUN (7-18) mg/dL Creatinine (0.50-1.00) mg/dL Estimated GFR (>89) mL/min Random Glucose (74-106) mg/dL Calcium (8.5-10.1) mg/dL Total Bilirubin (0.2-1.0) mg/dL AST (15-37) U/L ALT (10-53) U/L Alkaline Phosphatase (45-117) U/L Total Creatine Kinase 79 (26-192) U/L Troponin I Less than 0.02 L (0.02-0.05) ng/mL B-Natriuretic Peptide (0-100) pg/mL Total Protein (6.4-8.2) g/dL Albumin (3.4-5.0) g/dL Lipase (73-393) U/L Imaging Data Radiologist's impression: Chest X-Ray 04/16/18 19:57 CONCLUSION: No acute cardiopulmonary disease. Thoracic Aorta CT 04/16/18 20:53 CONCLUSION: 1. The aorta is unremarkable in appearance with no aneurysm or dissection. 2. Small nonobstructing left renal calculus. 3. Moderate hepatic steatosis. ECG Data Attestation: I personally reviewed and interpreted this ECG as follows: Interpretation: Sinus rhythm, 99 bpm, WA interval 153 ms, QRS interval 93 ms, QTc interval 400 ms, normal axis, no ST segment depression or elevation, not a STEMI. Repeat ECG performed at 12:07 AM is similar in morphology. Discharge Plan Discharge Disposition Patient Disposition: 30 Still Patient Discharge Condition Condition: Stable Discharge Details Diagnosis: Acute chest pain, Abdominal pain, RLQ Physicians Team ED Provider: Tommy Guerrero Primary Care Provider: NON STAFF,PROVIDER Attending Provider: Charli Dacosta Status ED Status: Admitted Observation Patient
[2018-04-16] MEDS ORDERED: Sod Chloride 0.9% Inj 1,000 ML IV.SIG SCH (21:00)
[2018-04-16 21:04] LABS: Albumin 3.5 g/dL (3.4-5.0); Anion Gap 10 meq/L (5-15); Aspartate Aminotransferase 28 U/L (15-37); Blood Urea Nitrogen 9 mg/dL (7-18); Calcium 9.1 mg/dL (8.5-10.1); Carbon Dioxide 23.9 meq/L (21.0-32.0); Chloride 102 meq/L (98-107); Glomerular Filtration Rate 65 mL/min (>89); Glucose,Random 110 mg/dL (74-106); Lipase 104 U/L (73-393); Sodium 136 meq/L (136-145)
[2018-04-16 21:10] LABS: Alanine Aminotransferase 48 U/L (10-53); Alkaline Phosphatase 123 U/L (45-117); Total Protein 7.3 g/dL (6.4-8.2)
--- NOTE | 2018-04-16 21:52 | CT ---
EXAM DATE: 04/16/2018 9:43 PM EDT AGE/SEX: 43 years / Female INDICATIONS: Mid-sternal chest pain. CLINICAL DATA: This is the patient's initial encounter. Patient reports that signs and symptoms have been present for 1 day and indicates a pain score of 7/10. MEDICAL/SURGICAL HISTORY: Transient ischemic attack. Cholecystectomy. Tubal ligation. Partial hyst erectomy. RADIATION DOSE: 17.12 CTDI (mGy) COMPARISON: [facility], CTA PULMONARY W CONTRAST W 3D, 03/01/2018. . TECHNIQUE: Volumetric scanning was performed using a multi-row detector CT scanner during bolus infu ilya of 99 ml Omnipaque 350 (iohexol) nonionic water-soluble contrast as a single exam dose. The da ta was post processed with a variety of visualization algorithms including full volume maximum intens ity projection, multi-planar sliding thin slab reformation, curved planar reformation, and surface re ndering techniques. Using automated exposure control and adjustment of the mA and/or kV according to patient size, radiation dose was kept as low as reasonably achievable to obtain optimal diagnostic q uality images. DICOM format image data is available electronically for review and comparison. FINDINGS: Lungs: There is no consolidation or pneumothorax. No concerning pulmonary nodule is visualized. No pleural fluid is present. Mediastinum: No abnormally enlarged lymph nodes by CT criteria. No axillary or hilar abnormalities a re identified. Abdomen: The liver and spleen are free of focal defects. The gallbladder and pancreas demonstrate no abnormality. The adrenal glands are normal. The kidneys demonstrate no evidence of solid renal mass or hydronephrosis. No free fluid or abdominal masses are identified. No para-aortic adenopathy is see n. Pelvis: No evidence of free fluid or pelvic mass. No abnormally enlarged inguinal or retroperitoneal lymph nodes are present. The bladder is unremarkable. Thoracic Aorta: The thoracic aortic root is normal with normal branching of the great vessels. Ther e is no evidence of aneurysm or dissection. Abdominal Aorta: The aorta is normal in caliber without aneurysm or dissection. The renal arteries are patent bilaterally. The proximal celiac and superior mesenteric arteries are patent and normal i n diameter. Pelvic Vessels: The internal iliac and external iliac vessels are patent without aneurysm or stenosi s. There is a small nonobstructing left renal calculus. There is moderate hepatic steatosis. CONCLUSION: 1. The aorta is unremarkable in appearance with no aneurysm or dissection. 2. Small nonobstructing left renal calculus. 3. Moderate hepatic steatosis. Electronically signed by: Markus Gray MD 04/16/2018 9:51 PM EDT
[2018-04-17 00:17] LABS: Creatine Kinase 79 U/L (26-192)
[2018-04-17 04:16] LABS: Creatine Kinase 73 U/L (26-192)
[2018-04-17 07:23] VITALS: O2SAT 95
[2018-04-17] MEDS ORDERED: Acetaminophen 500 MG Tablet PO PRN (08:14)
[2018-04-17 08:19] VITALS: BP 164/86; RESP 18; TEMP 98.4
[2018-04-17] MEDS ORDERED: Metoprolol Tartrate 25 MG Tablet PO SCH (09:00)
[2018-04-17] MEDS ORDERED: Aspirin 325 MG Tablet PO SCH (09:00)
[2018-04-17] MEDS ORDERED: amLODIPine 10 MG Tablet PO SCH (09:00)
--- NOTE | 2018-04-17 10:33 | P.PNCA ---
Subjective Interval history: 43-year-old lady presents with recurrence of sharp mid sternal chest pain radiating into the left chest. History is as documented. She also complains of abdominal pain which has been severe associated with nausea vomiting and continues to the present time. She has a previous cholecystectomy and Has known renal stones. She has had multiple prior evaluations including CT scans and a current CT scan of her thorax. In addition she is hypertensive. She claims to have had a stress test about 4 years ago and been able to exercise to stage IV. I am in agreement with current documentation on this patient further evaluation plan therapeutic options were discussed with the nurse practitioner. She will be ruled out for ACS by protocol, plan was to do an exercise stress test in view of her supposed high-level previous stress test however the patient is currently complaining of abdominal pain and so decision was made to change this to a nuclear stress test. However, the patient steadfastly refuses a nuclear stress test and so further evaluation on the exercise stress test will be carried out at her preference. Physical Exam Vital signs: Vital Signs 04/16/18 19:08 04/16/18 19:51 04/16/18 20:31 Temperature 98.7 F Pulse Rate 98 H 94 H Respiratory Rate 16 20 Blood Pressure 182/105 H 176/80 H Pulse Oximetry 98 98 98 04/16/18 20:55 04/16/18 21:52 04/16/18 23:59 Temperature Pulse Rate 94 H 86 Respiratory Rate 16 Blood Pressure 170/93 H Pulse Oximetry 98 98 04/17/18 01:48 04/17/18 02:33 04/17/18 03:32 Temperature 98.6 F Pulse Rate 83 82 Respiratory Rate 17 9 L 17 Blood Pressure 172/96 H 145/85 H Pulse Oximetry 98 93 L 04/17/18 04:00 04/17/18 07:23 04/17/18 08:00 Temperature 98.4 F Pulse Rate 84 92 H Respiratory Rate 18 Blood Pressure 164/86 H Pulse Oximetry 95 95 Intake & Output 04/16/18 04/17/18 04/17/18 18:59 06:59 18:59 Intake Total 1000 / 1000 Balance 1000 / 1000 Weight 120.202 kg Intake: IV 1000 / 1000 NS Inj 1,000 ML @ Wide Open IV. 1000 / 1000 SIG BOLUS FANY Rx#:[id number] Other: Weight On Admission 131.9 kg Narrative: Very obese woman resting relatively comfortably in bed in spite of her complaints of abdominal pain. Chest diminished breath sounds due to obesity but no rales wheezes or rhonchi Cardiovascular PMI is not palpable but there is a regular sinus rhythm no gallops rubs or murmurs Abdomen is massively obese and extremely sensitive in the right mid quadrant with some discomfort over the low midline however there is no guarding rebound and no masses are palpable. Extremities show no clubbing cyanosis or edema Otherwise I am in agreement with documentation Assessment and Plan - Attending Attestation I attest to the fact that the patient's evaluation and intervention is appropriate for presentation and is as documented
--- NOTE | 2018-04-17 11:18 | P.HPCA ---
History of Present Illness Primary Care Physician: PROVIDER NON STAFF Chief Complaint: Chest pain History of Present Illness: This is a 43-year-old female with history of kidney stones, tachycardia, and anxiety that presents to ED with complaint of chest discomfort. Began yesterday and states lasted all day long and into the night. Found nothing in particular to worsen or improve it. States that eventually this resolved while she was here overnight. States she has had a cardiac workup before. States she had a stress test 3 or 4 years ago and walked for stage on a treadmill. Denies shortness of breath, nausea, or diaphoresis. She also claims of right lower abdominal pain. States she has had this before. Sometimes on the right sometimes on the left. States discomfort is usually related to kidney stone. Denies diarrhea or constipation. Denies blood in stool. Denies hematuria. Denies passing a stone recently. States last time she passed the stone was 3 months ago. Denies . States she has had a partial hysterectomy. Patient has had tubal ligation, partial hysterectomy, and cholecystectomy States her mother has CAD but was late onset. States she smokes about 1/4 pack a day for probably 20 years. - Diagnosis (1) Chest pain (2) Abdominal pain Review of Systems General: Patient denies fevers, chills, and recent travel. HEENT: Patient denies headache, sore throat, difficulty swallowing. Cardiovascular: Has the chest discomfort as mentioned above. Denies sensation of heart beating rapidly or irregularly. No syncope. Denies diaphoresis. Respiratory: Denies shortness of breath or inspirational chest discomfort. Denies coughing wheezing or hemoptysis. GI: Complains of right lower quadrant abdominal pain. Patient denies nausea, vomiting, diarrhea, bloody stools. Genitourinary: Patient denies hematuria. Denies dysuria or incontinence. Musculoskeletal: Patient denies joint pain or edema. Denies calf pain or edema. Neurovascular: Patient denies numbness, tingling, weakness in extremities. Denies headache. Endocrine: Denies polyuria and polydipsia. Hematologic: Denies easy bruising. Skin: Denies rash or itching. PMFSH - History History Provided By: Patient - Medical History Medical History: Medical History (Last Reviewed 04/17/18 @ 04:08 by Tommy Guerrero MD) Depression (Acute) Anxiety (Acute) Tachycardia (Acute) TIA (transient ischemic attack) (Acute) - Surgical History Surgical History: Surgical History (Last Reviewed 04/17/18 @ 04:08 by Tommy Guerrero MD) History of tubal ligation (Acute) History of cholecystectomy (Acute) History of partial hysterectomy (Acute) - Tobacco History Second Hand Smoke Exposure: Yes Tobacco Use In Past 30 Days: Yes Smoking Status: Heavy tobacco smoker Tobacco Type: Cigarettes - Alcohol History How Often Do You Have a Drink Containing Alcohol: Never - Substance Use History Substance History: No History of Abuse - Travel History Recent Travel in the [place] Within the Last 8 Weeks: No Recent Travel Out of the Country Within the Last 8 Weeks: No - Immunization History Tetanus Immunization: >5 Years Hx Influenza Vaccine This Season: Yes Medications and Allergies Active Medications: Active Medications Acetaminophen (Tylenol) 500 mg PO Q6H PRN PRN Reason: pain scale 1-5 Last Admin: 04/17/18 09:19 Dose: 500 mg Hydrocodone Bitart/Acetaminophen ([place] 7.5/325) 1 tab PO Q4H PRN PRN Reason: PAIN SCALE 1 TO 7 Last Admin: 04/17/18 00:48 Dose: 1 tab Amlodipine Besylate (Norvasc) 10 mg PO DAILY [facility] Last Admin: 04/17/18 09:20 Dose: 10 mg Aspirin (Aspirin) 325 mg PO DAILY [facility] Last Admin: 04/17/18 09:20 Dose: 325 mg Diazepam (Valium) 10 mg PO BID [facility] Last Admin: 04/17/18 09:20 Dose: 10 mg Doxepin HCl ([place]) 100 mg PO DAILY [facility] Sodium Chloride (Ns Inj) 1,000 mls @ 0 mls/hr IV.SIG BOLUS [facility] Last Infusion: 04/17/18 00:30 Dose: Infused Metoprolol Tartrate (Lopressor) 25 mg PO BID [facility] Last Admin: 04/17/18 09:20 Dose: 25 mg Ondansetron HCl (Zofran Inj) 4 mg IV.PUSH Q6H PRN PRN Reason: NAUSEA Last Admin: 04/17/18 09:19 Dose: 4 mg Risperidone (Risperdal) 1 mg PO HS [facility] Sodium Chloride (Ns Flush) 2 ml IV.FLUSH UNSCH PRN PRN Reason: FLUSH AFTER USING IV ACCESS Sodium Chloride (Ns Flush) 2 ml IV.FLUSH BID [facility] Last Admin: 04/17/18 09:20 Dose: 2 ml Sodium Chloride (Ns Flush) 2 ml IV.FLUSH PRN PRN PRN Reason: FLUSH AFTER USING IV ACCESS Allergies Allergy/AdvReac Type Severity Reaction Status Date / Time calcium Allergy Severe Respiratory Verified 04/16/18 19:12 Failure calcium carbonate Allergy Severe Respiratory Verified 04/16/18 19:12 Failure chlorpromazine Allergy Severe Respiratory Verified 04/16/18 19:12 Failure droperidol Allergy Severe Respiratory Verified 04/16/18 19:12 Failure prasterone (DHEA) Allergy Severe Respiratory Verified 04/16/18 19:12 Failure tramadol Allergy Hives Verified 04/16/18 19:12 NSAIDS (Non-Steroidal AdvReac Mild Dyspepsia Verified 04/16/18 19:12 Anti-Inflamma Home Medications Medication Instructions Recorded Confirmed Type amlodipine 10 mg PO DAILY 02/03/18 04/16/18 History diazepam 10 mg PO BID 02/03/18 04/16/18 History doxepin 100 mg PO DAILY 02/03/18 04/16/18 History metoprolol tartrate 25 mg PO BID 02/03/18 04/16/18 History risperidone [Risperdal] 1 mg PO HS 02/03/18 04/16/18 History hydroxyzine pamoate [Vistaril] 25 mg PO TID 03/01/18 04/17/18 History Exam Vital signs: Vital Signs 04/16/18 19:08 04/16/18 19:51 04/16/18 20:31 Temperature 98.7 F Pulse Rate 98 H 94 H Respiratory Rate 16 20 Blood Pressure 182/105 H 176/80 H Pulse Oximetry 98 98 98 04/16/18 20:55 04/16/18 21:52 04/16/18 23:59 Temperature Pulse Rate 94 H 86 Respiratory Rate 16 Blood Pressure 170/93 H Pulse Oximetry 98 98 04/17/18 01:48 04/17/18 02:33 04/17/18 03:32 Temperature 98.6 F Pulse Rate 83 82 Respiratory Rate 17 9 L 17 Blood Pressure 172/96 H 145/85 H Pulse Oximetry 98 93 L 04/17/18 04:00 04/17/18 07:23 04/17/18 08:00 Temperature 98.4 F Pulse Rate 84 92 H Respiratory Rate 18 Blood Pressure 164/86 H Pulse Oximetry 95 95 Intake & Output 04/16/18 04/17/18 04/17/18 18:59 06:59 18:59 Intake Total 1000 / 1000 Balance 1000 / 1000 Weight 120.202 kg Intake: IV 1000 / 1000 NS Inj 1,000 ML @ Wide Open IV. 1000 / 1000 SIG BOLUS FANY Rx#:[id number] Other: Weight On Admission 131.9 kg Narrative: GENERAL: This is a well-nourished, well-developed patient, in no apparent distress. Patient speaks in clear complete sentences. Patient is pleasant. HEENT: Head is atraumatic and normocephalic. Neck is supple without lymphadenopathy and trachea is midline. No JVD or carotid bruits. CARDIOVASCULAR: Regular rate and rhythm without murmurs, gallops, or rubs. RESPIRATORY: Clear to auscultation. Breath sounds equal bilaterally. No wheezes , rales, or rhonchi. Chest wall is nontender. No use of accessory muscles. GASTROINTESTINAL: There is some right lower quadrant abdominal tenderness without guarding or rebound. Nondistended. Abdomen soft. No obvious pulsatile mass or bruit. No CVA tenderness. Strong femoral pulses bilaterally. Normal bowel sounds in all quadrants. MUSCULOSKELETAL: Patient is moving upper and lower extremities freely. No calf tenderness or edema, no Homans sign. Strong pulses in upper and lower extremities. NEUROLOGICAL: Patient is alert and oriented. Cranial nerves 2-12 are grossly intact. No focal deficits and speech is clear. SKIN: No rash and turgor is normal. Results 04/16/18 20:30 04/16/18 20:30 Cardiac Enzymes 04/16/18 04/16/18 04/16/18 Range/Units 20:30 20:30 23:30 AST 28 (15-37) U/L Troponin I Less than 0.02 L Less than 0.02 L (0.02-0.05) ng/mL B-Natriuretic Peptide 8 (0-100) pg/mL 04/17/18 Range/Units 03:30 AST (15-37) U/L Troponin I Less than 0.02 L (0.02-0.05) ng/mL B-Natriuretic Peptide (0-100) pg/mL Coagulation 04/16/18 Range/Units 20:30 B-Natriuretic Peptide 8 (0-100) pg/mL CBC 04/16/18 Range/Units 20:30 WBC 9.4 (4.0-11.0) th/mm3 RBC 4.24 (4.00-5.30) mil/mm3 Hgb 12.5 (11.6-15.3) gm/dL Hct 37.8 (35.0-46.0) % Plt Count 299 (150-450) th/mm3 Neut # (Auto) 5.6 (1.8-7.7) th/mm3 Lymph # (Auto) 2.5 (1.0-4.8) th/mm3 [place] # (Auto) 1.1 H (0.0-0.9) th/mm3 Eos # (Auto) 0.2 (0.0-0.4) th/mm3 Baso # (Auto) 0.1 (0.0-0.2) th/mm3 Comprehensive Metabolic Panel 04/16/18 Range/Units 20:30 Sodium 136 (136-145) meq/L Potassium 4.0 (3.5-5.1) meq/L Chloride 102 (98-107) meq/L Carbon Dioxide 23.9 (21.0-32.0) meq/L BUN 9 (7-18) mg/dL Creatinine 0.94 (0.50-1.00) mg/dL Calcium 9.1 (8.5-10.1) mg/dL AST 28 (15-37) U/L ALT 48 (10-53) U/L Alkaline Phosphatase 123 H (45-117) U/L Total Protein 7.3 (6.4-8.2) g/dL Albumin 3.5 (3.4-5.0) g/dL Intake and Output 04/16/18 04/17/18 04/17/18 22:59 06:59 14:59 Intake Total 1000 / 1000 Balance 1000 / 1000 Intake: IV 1000 / 1000 NS Inj 1,000 ML @ Wide Open IV. 1000 / 1000 SIG BOLUS FANY Rx#:[id number] Other: Weight 120.202 kg 120.202 kg Weight On Admission 131.9 kg EKG interpretations - EKG EKG shows: sinus rhythm (EKGs are sinus rhythm without significant ST segment depressions or elevations.) Caprini VTE Risk Assessment Caprini VTE Risk Assessment: No/Low Risk (score <= 1) Caprini Risk Assessment Model: Point Value = 1 Point Value = 2 Point Value = 3 Point Value = 5 Age 41-60 Minor surgery BMI > 25 kg/m2 Swollen legs Varicose veins or History of unexplained or recurrent spontaneous Oral contraceptives or hormone replacement Sepsis (< 1 month) Serious lung disease, including pneumonia (< 1 month) Abnormal pulmonary function Acute myocardial infarction Congestive heart failure (< 1 month) History of inflammatory bowel disease Medical patient at bed rest Age 61-74 Arthroscopic surgery Major open surgery (> 45 min) Laparoscopic surgery (> 45 min) Malignancy Confined to bed (> 72 hours) Immobilizing plaster cast Central venous access Age >= 75 History of VTE Family history of VTE Factor V Leiden Prothrombin [id number] Lupus anticoagulant Anticardiolipin antibodies Elevated serum homocysteine Heparin-induced thrombocytopenia Other congenital or acquired thrombophilia Stroke (< 1 month) Elective arthroplasty Hip, pelvis, or leg fracture Acute spinal cord injury (< 1 month) Prophylaxis Regimen: Total Risk Factor Score Risk Level Prophylaxis Regimen 0-1 Low Early ambulation 2 Moderate Order ONE of the following: *Sequential Compression Device (SCD) *Heparin 5000 units SQ BID 3-4 Higher Order ONE of the following medications: *Heparin 5000 units SQ TID *Enoxaparin/Lovenox 40 mg SQ daily (WT < 150 kg, CrCl > 30 mL/min) *Enoxaparin/Lovenox 30 mg SQ daily (WT < 150 kg, CrCl > 10-29 mL/min) *Enoxaparin/Lovenox 30 mg SQ BID (WT < 150 kg, CrCl > 30 mL/min) AND/OR *Sequential Compression Device (SCD) 5 or more Highest Order ONE of the following medications: *Heparin 5000 units SQ TID (Preferred with Epidurals) *Enoxaparin/Lovenox 40 mg SQ daily (WT < 150 kg, CrCl > 30 mL/min) *Enoxaparin/Lovenox 30 mg SQ daily (WT < 150 kg, CrCl > 10-29 mL/min) *Enoxaparin/Lovenox 30 mg SQ BID (WT < 150 kg, CrCl > 30 mL/min) AND *Sequential Compression Device (SCD) Assessment and Plan - Assessment (1) Chest pain Code(s): R07.9 - Chest pain, unspecified Status: Acute (2) Abdominal pain Code(s): R10.9 - Unspecified abdominal pain Status: Acute - Plan * Chest pain: Patient has had serial cardiac enzymes and EKGs for ruling out purposes. She was seen by Dr. King of cardiology in the chest pain center. She underwent a nonischemic Asaf protocol ETT and will be discharged home at this time. She is to follow-up with her PCP. Return to ED for interval issues. * Abdominal pain: Follow-up with her PCP. Return to ED for interval issues. Patient is stable at this time. She is agreeable to this plan. H&P: Quality - VTE Deep Vein Thrombosis/Pulmonary Embolism Present on Admission: No (1) Chest pain Qualifiers: Chest pain type: unspecified Qualified Code(s): R07.9 - Chest pain, unspecified
--- NOTE | 2018-04-17 11:22 | ECG ---
Date Performed: 04/17/2018 Time Performed: 03:36:02 PTAGE: 43 years EKG: Sinus rhythm NORMAL ECG PREVIOUS TRACING : 04/17/2018 00.07 DOCTOR: Wicho King Interpretating Date/Time 04/17/2018 11:21:58
--- NOTE | 2018-04-17 11:23 | ECG ---
Date Performed: 04/17/2018 Time Performed: 00:07:43 PTAGE: 43 years EKG: Sinus rhythm NORMAL ECG PREVIOUS TRACING : 04/16/2018 19.21 DOCTOR: Wicho King Interpretating Date/Time 04/17/2018 11:22:25
--- NOTE | 2018-04-17 11:26 | TR ---
Date Performed: 04/17/2018 Time Performed: 10:44:28 DOCTOR: Wicho King DRUG LIST: CLINICAL HISTORY: CHEST PAIN REASON FOR TEST: REASON FOR ENDING: OBSERVATION: CONCLUSION: ALBERTO PROTOCOL. NO CP. TEST STOPPED SECONDARY TO SOB.Maximum [place]=706 % Max HR Achieve d=99.0% Total Exercise Time=6:41 COMMENTS: Patient exercised for 6 minutes 41 seconds representing significant workload in regard s to her obesity. She showed no EKG changes that were diagnostic of ischemia and had no symptoms sug gesting ischemia. Low probability of ischemic heart disease as a cause of current presentation.
[2018-04-17 12:53] VITALS: PULSE 87
--- NOTE | 2018-04-17 18:56 | ECG ---
Date Performed: 04/16/2018 Time Performed: 19:21:47 PTAGE: 43 years EKG: Sinus rhythm NORMAL ECG PREVIOUS TRACING : 03/02/2018 06.00 Since the previous tracing, no significant change noted DOCTOR: Abhi Lobo Interpretating Date/Time 04/18/2018 06:51:22
== END 2018-04-17 12:41 | disposition home or self-care (01) ==
LOC: NEPC 18:55 → NEDA 18:55 → NEPHCDU 04-17 02:57
PROVIDERS: ADMIT Internal Medicine Cardiovascular Disease; ATTEND Internal Medicine Cardiovascular Disease
DX: Z98.51 Tubal ligation status; Z68.38 Body mass index [BMI] 38.0-38.9, adult; F17.210 Nicotine dependence, cigarettes, uncomplicated; R00.0 Tachycardia, unspecified; Z86.73 Personal history of transient ischemic attack (TIA), and cerebral infarction without residual deficits; Z87.442 Personal history of urinary calculi; Z82.49 Family history of ischemic heart disease and other diseases of the circulatory system; E66.9 Obesity, unspecified; Z90.710 Acquired absence of both cervix and uterus; R10.31 Right lower quadrant pain; Z88.5 Allergy status to narcotic agent; R07.9 Chest pain, unspecified; F41.9 Anxiety disorder, unspecified; Z90.49 Acquired absence of other specified parts of digestive tract; F32.9 Major depressive disorder, single episode, unspecified